=== PATIENT | male | born 1990 | race Caucasian/White ===

== ENCOUNTER 2017-02-23 12:18 | Emergency (ER) | payer BC ==
[2017-02-23] MEDS ORDERED: Lidocaine 1% 20 ML MDV INJECT ONE (12:40)
--- NOTE | 2017-02-23 12:44 | EDM.PDOC ---
ED HPI GENERAL MEDICAL PROBLEM - General Chief Complaint: Laceration Stated Complaint: STITCHES NEEDED ON LIPS Time Seen by Provider: 02/23/17 12:30 Source of Information: Reports: Patient History Limitations: Reports: No Limitations - History of Present Illness INITIAL COMMENTS - FREE TEXT/NARRATIVE: HISTORY AND PHYSICAL: [Laceration to mid-lower lip] History of Present Illness: [26-year-old male presents to the emergency room today with complaints of a laceration to his lower lip. States he was working with a tire iron and it slipped and hit him in the face. Denies any loss of consciousness. Denies any other injury besides the laceration. No current bleeding noted. Tetanus is current May 2016.] Review of Systems: As per history of present illness and below otherwise all systems reviewed and negative. Past medical history: As per history of present illness and as reviewed below otherwise noncontributory. Surgical history: As per history of present illness and as reviewed below otherwise noncontributory. Social history: No reported history of drug or alcohol abuse. Family history: As per history of present illness and as reviewed below otherwise noncontributory. Physical exam: Gen.: On toxic appearing male. Able to speak in full sentences, no shortness of breath. His questions appropriately area alert and oriented 3 HEENT: Normocehpalic, pupils reactive, negative for conjunctival pallor or scleral icterus, mucous membranes moist, throat clear, neck supple, nontender, trachea midline. Gums, oral mucosa, teeth intact. Lungs: Clear to auscultation, breath sounds equal bilaterally, chest non tender. Heart: S1S2, regular, negative for clicks, rubs, or JVD. Abdomen: Soft, nondistended, nontender. Negative for masses or hepatossplenmegaly. Negative for costovertebral tenderness. Extremities: Atraumatic, negative for cords or calf pain. Neurovascular unremarkable. Skin: Approximately 1.5 cm laceration noted to the lower lip, which is midline starting in the oral mucosa coming out that not crossing border. Neuro: Awake, alert, oriented. Cranial nerves II through XII unremarkable. Cerebellum unremarkable. Motor and sensory unremarkable throughout. Exam nonfocal. Diagnostics: [None] Therapeutics: [Lidocaine] Impression: [Lip laceration] Plan: [Discharged to home Sutures are dissolvable Follow-up in 2 days with your primary care provider or return ER] Definitive disposition and diagnosis as appropriate pending reevaluation and review of above. Lower Lip Pain Score (Numeric/FACES): 7 - Related Data Allergies Allergy/AdvReac Type Severity Reaction Status Date / Time No Known Allergies Allergy Verified 02/23/17 12:45 Home Meds: Home Meds Cephalexin [Keflex] 500 mg PO TID #21 capsule 02/23/17 [Rx] Levothyroxine Sodium [Synthroid] 175 mcg 02/23/17 [History] ED ROS GENERAL - Review of Systems Review Of Systems: ROS reveals no pertinent complaints other than HPI. ED EXAM, SKIN/RASH Exam: See Below (Dictation) Course - Vital Signs Last Recorded V/S: Last Vital Signs Temp 36.5 C 02/23/17 12:30 Pulse 61 02/23/17 12:30 Resp 18 02/23/17 12:30 BP 162/74 H 02/23/17 12:30 Pulse Ox 97 02/23/17 12:30 - Orders/Labs/Meds Meds: Medications Discontinued Medications Generic Name Dose Route Start Last Admin Trade Name Génesis PRN Reason Stop Dose Admin Lidocaine HCl 20 ml 02/23/17 12:40 02/23/17 13:00 Xylocaine 1% INJECT 02/23/17 12:41 20 ml ONETIME ONE Administration Departure - Departure Time of Disposition: 13:23 Disposition: Home, Self-Care 01 Condition: Good Clinical Impression: Lip laceration - Discharge Information Prescriptions: Cephalexin [Keflex] 500 mg PO TID #21 capsule Forms: ED Department Discharge Additional Instructions: The following information is given to patients seen in the emergency department who are being discharged to home. This information is to outline your options for follow-up care. We provide all patients seen in our emergency department with a follow-up referral. The need for follow-up, as well as the timing and circumstances, are variable depending upon the specifics of your emergency department visit. If you don't have a primary care physician on staff, we will provide you with a referral. We always advise you to contact your personal physician following an emergency department visit to inform them of the circumstance of the visit and for follow-up with them and/or the need for any referrals to a consulting specialist. The emergency department will also refer you to a specialist when appropriate. This referral assures that you have the opportunity for followup care with a specialist. All of these measure are taken in an effort to provide you with optimal care, which includes your followup. Under all circumstances we always encourage you to contact your private physician who remains a resource for coordinating your care. When calling for followup care, please make the office aware that this follow-up is from your recent emergency room visit. If for any reason you are refused follow-up, please contact the [facility] emergency department at and asked to speak to the emergency department charge nurse. Please return in 2 days for reevaluation of your lip Any signs of infection please return immediately Prescription for cephalexin 500 mg -one tablet 3 times a day 7 days
[2017-02-23 13:46] VITALS: BP 144/84
== END 2017-02-23 13:34 | disposition home or self-care (01) ==
LOC: MW.ED 12:18
DX: S01.511A Laceration without foreign body of lip, initial encounter (principal); W22.8XXA Striking against or struck by other objects, initial encounter
CPT/HCPCS: 12011; 99282; 99283

== ENCOUNTER 2019-01-14 08:09 | Emergency (ER) | payer BC ==
[2019-01-14] MEDS ORDERED: Ketorolac 30 MG/ML SDV IM ONE (08:25)
[2019-01-14] MEDS ORDERED: predniSONE 20 MG Tab PO ONE (08:25)
[2019-01-14 08:28] VITALS: BP 141/70
--- NOTE | 2019-01-14 08:34 | EDM.PDOC ---
ED HPI GENERAL MEDICAL PROBLEM - General Chief Complaint: Back Pain or Injury Stated Complaint: back pain Time Seen by Provider: 01/14/19 08:34 - History of Present Illness INITIAL COMMENTS - FREE TEXT/NARRATIVE: 28 y/o male here for low back pain. States that he has history of low back pain and sciatica for years now. States that he has been having lower back pain and right sciatica for the past 2 weeks. Rates back pain 8/10 at worse. Initially improved but then came back. No recent back trauma or procedures. No saddle anesthesia. No urinary or bowel incontinence. Able to ambulate but has pain with weight bearing on right. Has been taking ibuprofen and tylenol without improvement. - Related Data Allergies Allergy/AdvReac Type Severity Reaction Status Date / Time No Known Allergies Allergy Verified 02/23/17 12:45 Home Meds: Home Meds Levothyroxine Sodium [Synthroid] 200 mcg PO DAILY 02/23/17 [History] Diclofenac Sodium [Voltaren] 75 mg PO BIDMEALS PRN #30 tab.cr 01/14/19 [Rx] Orphenadrine [Norflex] 100 mg PO BID PRN #30 tab 01/14/19 [Rx] predniSONE 40 mg PO WITHBREAKFAST 5 Days tab 01/14/19 [Rx] predniSONE [Prednisone] 40 mg PO DAILY #10 tablet 01/14/19 [Rx] Past Medical History HEENT History: Reports: None Cardiovascular History: Reports: None Genitourinary History: Reports: None Neurological History: Reports: None Psychiatric History: Reports: None Endocrine/Metabolic History: Reports: Hypothyroidism, Other (See Below) Other Endocrine/Metabolic History: thyroid CA Hematologic History: Reports: None Immunologic History: Reports: None Dermatologic History: Reports: None - Infectious Disease History Infectious Disease History: Reports: None - Past Surgical History GI Surgical History: Reports: Small Bowel Other GI Surgeries/Procedures: piece removed as a child Endocrine Surgical History: Reports: Thyroidectomy Musculoskeletal Surgical History: Reports: Other (See Below) Other Musculoskeletal Surgeries/Procedures:: L index finger surgery Social & Family History - Family History Family Medical History: Noncontributory - Tobacco Use Smoking Status *Q: Current Every Day Smoker Years of Tobacco use: 2 Packs/Tins Daily: 1 - Caffeine Use Caffeine Use: Reports: None - Recreational Drug Use Recreational Drug Use: No ED ROS GENERAL - Review of Systems Review Of Systems: ROS reveals no pertinent complaints other than HPI. ED EXAM,LOWER BACK PAIN/INJURY - Physical Exam Exam: See Below General Appearance: Alert, WD/WN, No Apparent Distress Respiratory/Chest: No Respiratory Distress, Lungs Clear Cardiovascular: Regular Rate, Rhythm Back Exam: Other. No: CVA Tenderness (L), CVA Tenderness (R) (low back pain with paraspinal tenderness. able to stand up wand ambulate.) Neurological: Alert, Normal Mood/Affect Course - Vital Signs Text/Narrative:: lumbar xray. Toradol 30 mg IM once. Prednisone 40 mg PO once. Lumbar xray, negative for fractures. Last Recorded V/S: Last Vital Signs Temp 35.9 C 01/14/19 08:20 Pulse 67 01/14/19 08:20 Resp 18 01/14/19 08:20 BP 141/70 H 01/14/19 08:20 Pulse Ox 98 01/14/19 08:20 - Orders/Labs/Meds Orders: Active Orders 24 hr Category Date Time Status Lumbar Spine 2 or 3V [CR] Stat Exams 01/14/19 08:25 Taken Meds: Medications Discontinued Medications Generic Name Dose Route Start Last Admin Trade Name Freq PRN Reason Stop Dose Admin Ketorolac Tromethamine 30 mg 01/14/19 08:25 01/14/19 08:43 Toradol IM 01/14/19 08:26 30 mg ONETIME ONE Administration Prednisone 40 mg 01/14/19 08:25 01/14/19 08:42 Prednisone PO 01/14/19 08:26 40 mg ONETIME ONE Administration Departure - Departure Time of Disposition: 09:27 Disposition: Home, Self-Care 01 Clinical Impression: Sciatic leg pain - Discharge Information *PRESCRIPTION DRUG MONITORING PROGRAM REVIEWED*: Not Applicable *COPY OF PRESCRIPTION DRUG MONITORING REPORT IN PATIENT BETZY: Not Applicable Prescriptions: Diclofenac Sodium [Voltaren] 75 mg PO BIDMEALS PRN #30 tab.cr PRN Reason: Pain Orphenadrine [Norflex] 100 mg PO BID PRN #30 tab PRN Reason: Muscle Spasm predniSONE 40 mg PO WITHBREAKFAST 5 Days tab predniSONE [Prednisone] 40 mg PO DAILY #10 tablet Instructions: Chronic Back Pain, [id number], Sciatica, [id number] Referrals: PCP,None [Primary Care Provider] - Forms: ED Department Discharge Additional Instructions: The following information is given to patients seen in the emergency department who are being discharged to home. This information is to outline your options for follow-up care. We provide all patients seen in our emergency department with a follow-up referral. The need for follow-up, as well as the timing and circumstances, are variable depending upon the specifics of your emergency department visit. If you don't have a primary care physician on staff, we will provide you with a referral. We always advise you to contact your personal physician following an emergency department visit to inform them of the circumstance of the visit and for follow-up with them and/or the need for any referrals to a consulting specialist. The emergency department will also refer you to a specialist when appropriate. This referral assures that you have the opportunity for follow-up care with a specialist. All of these measure are taken in an effort to provide you with optimal care, which includes your follow-up. Under all circumstances we always encourage you to contact your private physician who remains a resource for coordinating your care. When calling for follow-up care, please make the office aware that this follow-up is from your recent emergency room visit. If for any reason you are refused follow-up, please contact the [facility] Emergency Department at and asked to speak to the emergency department charge nurse. - My Orders Last 24 Hours: My Active Orders 01/14/19 08:25 Lumbar Spine 2 or 3V [CR] Stat - Assessment/Plan Last 24 Hours: My Active Orders 01/14/19 08:25 Lumbar Spine 2 or 3V [CR] Stat
--- NOTE | 2019-01-14 09:44 | CR ---
INDICATION: Back pain TECHNIQUE: Lumbar spine 2 view. COMPARISON: None FINDINGS: Bones: Alignment is normal. No fractures or significant bone lesions. Joints: Disc spaces and facets are unremarkable. Soft tissues: Unremarkable. IMPRESSION: Unremarkable lumbar spine. Dictated by Tania Layne MD @ Jan 14 2019 9:43AM Signed by Dr. Tania Layne @ Jan 14 2019 9:43AM
== END 2019-01-14 09:45 | disposition home or self-care (01) ==
LOC: MW.ED 08:09
DX: M54.41 Lumbago with sciatica, right side (principal); E03.9 Hypothyroidism, unspecified; Z79.899 Other long term (current) drug therapy; F17.210 Nicotine dependence, cigarettes, uncomplicated
CPT/HCPCS: 72100; 96372; 99283; A9270; J1885

== ENCOUNTER 2019-02-02 16:01 | Emergency (ER) | payer BC ==
[2019-02-02 16:34] VITALS: BP 132/54; PULSE 87
[2019-02-02] MEDS ORDERED: methylPREDNISolone Sodium Succinate 125 MG/2 ML SDV IM ONE (16:48)
[2019-02-02] MEDS ORDERED: methylPREDNISolone Sodium Succinate 125 MG/2 ML SDV IVPUSH ONE (16:48)
[2019-02-02] MEDS ORDERED: Ketorolac 60 MG/2 ML SDV IM ONE (16:48)
[2019-02-02] MEDS ORDERED: methylPREDNISolone Sodium Succinate 125 MG/2 ML SDV ONE (16:51)
--- NOTE | 2019-02-02 17:41 | EDM.PDOC ---
ED HPI GENERAL MEDICAL PROBLEM - General Chief Complaint: Back Pain or Injury Stated Complaint: back pain Time Seen by Provider: 02/02/19 16:24 Source of Information: Reports: Patient History Limitations: Reports: No Limitations - History of Present Illness INITIAL COMMENTS - FREE TEXT/NARRATIVE: HISTORY AND PHYSICAL: History of present illness: Patient is a 28-year-old male presents to the ED today with concern of an exacerbation of low back pain with right-sided sciatica. Patient states the pain is in his low back and when he bends over she rates down the outside of his right leg. Patient states he has a history of low back pain and was seen in the ED 2 weeks ago for an exacerbation in which he had a lumbar XR, given prednisone, diclofenac, and flexeril which he states he no longer has any of this left. Patient states his exacerbation today is worse than it has ever been before. Patient states he has an appointment at home the first week of February and has an MRI already scheduled for that time. Patient denies any new injury or trauma. Patient denies any loss or retention of bowel or bladder function. Patient myself anesthesia. Patient denies fever, chills, chest pain, shortness of breath, or cough. Denies headache, neck stiff ness, change in vision, syncope, or near syncope. Denies nausea, vomiting, abdominal pain, diarrhea, constipation, or dysuria. Has not noted any blood in urine or stool. Patient has been eating and drinking appropriately. Review of systems: As per history of present illness and below otherwise all systems reviewed and negative. Past medical history: As per history of present illness and as reviewed below otherwise noncontributory. Surgical history: As per history of present illness and as reviewed below otherwise noncontributory. Social history: See social history for further information Family history: As per history of present illness and as reviewed below otherwise noncontributory. Physical exam: General: Patient is alert, oriented, and in no acute distress. Patient sitting comfortably on exam table. HEENT: Atraumatic, normocephalic, pupils equal and reactive bilaterally, negative for conjunctival pallor or scleral icterus, mucous membranes moist, TMs normal bilaterally, throat clear, neck supple, nontender, trachea midline. No drooling or trismus noted. No meningeal signs. No hot potato voice noted. Lungs: Clear to auscultation, breath sounds equal bilaterally, chest nontender. Heart: S1S2, regular rate and rhythm without overt murmur Abdomen: Soft, nondistended, nontender. Negative for masses or hepatosplenomegaly. Negative for costovertebral tenderness. Pelvis: Stable nontender. Genitourinary: Deferred. Rectal: Deferred. Skin: Intact, warm, dry. No lesions or rashes noted. Extremities: Atraumatic, negative for cords or calf pain. Neurovascular unremarkable. Patient has full range of motion of cervical and thoracic spine but limited range of motion of the lumbar spine due to pain. Negative pain to palpation of complete spinous processes of complete spine. Patient does have moderate-severe pain with palpation on the right side of the paraspinous muscle of the lumbar spine. No obvious deformity of the spine. No step-offs, deformities, or crepitus on palpation. Neuro: Awake, alert, oriented. Cranial nerves II through XII unremarkable. Cerebellum unremarkable. Motor and sensory unremarkable throughout. Exam nonfocal. Notes: Discussed the importance for follow-up with a primary care provider. Voices understanding and is agreeable to plan of care. Denies any further questions or concerns at this time. Diagnostics: Lumbar CT Therapeutics: Toradol, Solumedrol, Norflex Prescription: Diclofenac, Flexeril, Medrol Dosepak Impression: Spondylolysis Acute on chronic low back pain Plan: 1. Take medication as prescribed. You can also use Tylenol as directed for pain and discomfort. You can apply heat and/or ice 15 minutes on 15 minutes off for symptomatic relief. 2. Follow-up with her primary care provider and for your MRI as discussed and as scheduled. 3. Return to the ED as needed and as discussed. Definitive disposition and diagnosis as appropriate pending reevaluation and review of above. R lower back and upper buttock/radiating down leg Pain Score (Numeric/FACES): 8 - Related Data Allergies Allergy/AdvReac Type Severity Reaction Status Date / Time No Known Allergies Allergy Verified 02/23/17 12:45 Home Meds: Home Meds Levothyroxine Sodium [Synthroid] 200 mcg PO DAILY 02/23/17 [History] Cyclobenzaprine [Flexeril] 10 mg PO TID PRN #15 tab 02/02/19 [Rx] Diclofenac Sodium [Voltaren] 75 mg PO BIDMEALS PRN #15 tab.cr 02/02/19 [Rx] methylPREDNISolone [Medrol] 4 mg PO ASDIRECTED #1 dosepk 02/02/19 [Rx] Past Medical History HEENT History: Reports: None Cardiovascular History: Reports: None Genitourinary History: Reports: None Neurological History: Reports: None Psychiatric History: Reports: None Endocrine/Metabolic History: Reports: Hypothyroidism, Other (See Below) Other Endocrine/Metabolic History: thyroid CA Hematologic History: Reports: None Immunologic History: Reports: None Oncologic (Cancer) History: Reports: Thyroid Dermatologic History: Reports: None - Infectious Disease History Infectious Disease History: Reports: None - Past Surgical History GI Surgical History: Reports: Small Bowel Other GI Surgeries/Procedures: piece removed as a child Endocrine Surgical History: Reports: Thyroidectomy Musculoskeletal Surgical History: Reports: Other (See Below) Other Musculoskeletal Surgeries/Procedures:: L index finger surgery Social & Family History - Family History Family Medical History: Noncontributory - Tobacco Use Smoking Status *Q: Current Every Day Smoker Years of Tobacco use: 2 Packs/Tins Daily: 0.2 - Caffeine Use Caffeine Use: Reports: None - Recreational Drug Use Recreational Drug Use: No ED ROS GENERAL - Review of Systems Review Of Systems: ROS reveals no pertinent complaints other than HPI. ED EXAM, GENERAL - Physical Exam Exam: See Below (see dictation) Course - Vital Signs Last Recorded V/S: Last Vital Signs Temp 36.3 C 02/02/19 16:29 Pulse 87 02/02/19 16:29 Resp 20 02/02/19 16:29 BP 132/54 L 02/02/19 16:29 Pulse Ox 97 02/02/19 16:29 - Orders/Labs/Meds Meds: Medications Discontinued Medications Generic Name Dose Route Start Last Admin Trade Name Freq PRN Reason Stop Dose Admin Ketorolac Tromethamine 60 mg 02/02/19 16:48 02/02/19 16:55 Toradol IM 02/02/19 16:49 60 mg ONETIME ONE Administration Methylprednisolone Sodium Succinate 125 mg 02/02/19 16:48 Solu-Medrol IVPUSH 02/02/19 16:49 ONETIME ONE Methylprednisolone Sodium Succinate 125 mg 02/02/19 16:48 02/02/19 16:54 Solu-Medrol IM 02/02/19 16:49 125 mg ONETIME ONE Administration Methylprednisolone Sodium Succinate Confirm 02/02/19 16:51 02/02/19 17:50 Solu-Medrol Administered 02/02/19 16:52 Not Given Dose 125 mg .ROUTE .STK-MED ONE Orphenadrine Citrate 60 mg 02/02/19 16:48 02/02/19 16:54 Norflex IM 02/02/19 16:49 60 mg NOW STA Administration Departure - Departure Time of Disposition: 17:56 Disposition: Home, Self-Care 01 Clinical Impression: Acute exacerbation of chronic low back pain Spondylolisthesis Qualifiers: Spinal region: lumbar Qualified Code(s): M43.16 - Spondylolisthesis, lumbar region - Discharge Information Prescriptions: Cyclobenzaprine [Flexeril] 10 mg PO TID PRN #15 tab PRN Reason: Spasms Diclofenac Sodium [Voltaren] 75 mg PO BIDMEALS PRN #15 tab.cr PRN Reason: Pain methylPREDNISolone [Medrol] 4 mg PO ASDIRECTED #1 dosepk Referrals: PCP,None [Primary Care Provider] - Forms: ED Department Discharge Additional Instructions: The following information is given to patients seen in the emergency department who are being discharged to home. This information is to outline your options for follow-up care. We provide all patients seen in our emergency department with a follow-up referral. The need for follow-up, as well as the timing and circumstances, are variable depending upon the specifics of your emergency department visit. If you don't have a primary care physician on staff, we will provide you with a referral. We always advise you to contact your personal physician following an emergency department visit to inform them of the circumstance of the visit and for follow-up with them and/or the need for any referrals to a consulting specialist. The emergency department will also refer you to a specialist when appropriate. This referral assures that you have the opportunity for follow-up care with a specialist. All of these measure are taken in an effort to provide you with optimal care, which includes your follow-up. Under all circumstances we always encourage you to contact your private physician who remains a resource for coordinating your care. When calling for follow-up care, please make the office aware that this follow-up is from your recent emergency room visit. If for any reason you are refused follow-up, please contact the [facility] Emergency Department at and asked to speak to the emergency department charge nurse. [facility] [address] [place] [address] [facility] [address] [place] [address] 1. Take medication as prescribed. You can also use Tylenol as directed for pain and discomfort. You can apply heat and/or ice 15 minutes on 15 minutes off for symptomatic relief. 2. Follow-up with her primary care provider and for your MRI as discussed and as scheduled. 3. Return to the ED as needed and as discussed.
--- NOTE | 2019-02-02 17:47 | CT ---
INDICATION: Low back pain radiating to the right side. TECHNIQUE: Noncontrast axial CT of the lumbar spine with coronal/sagittal reformats are provided. No comparisons. FINDINGS: Mild grade 1 anterolisthesis of L5 on S1 due to chronic appearing bilateral L5 spondylolysis. Remainder of the lumbar spine demonstrates normal overall stature and alignment. L5-S1: Mild anterolisthesis with mild unroofing of the intervertebral disc space results in mild to moderate bilateral foraminal narrowing with contact of the exiting L5 nerve roots. No central canal narrowing. Remainder of the lumbar spine is unremarkable, specifically no evidence suspicious central canal or foraminal narrowing. Moderate degenerative changes of the left sacroiliac joint with prominent syndesmophyte. IMPRESSION: Mild grade 1 anterolisthesis of L5 on S1 due to chronic bilateral L5 spondylolysis with resultant mild to moderate bilateral foraminal narrowing and contact of the exiting L5 nerve roots. Dictated by Ananda Taylor MD @ 02/02/2019 5:45:42 PM Please note that all CT scans at this facility use dose modulation, iterative reconstruction, and/or weight-based dosing when appropriate to reduce radiation dose to as low as reasonably achievable. Dictated by: Aannda Taylor MD @ 02/02/2019 17:45:50 (Electronically Signed)
== END 2019-02-02 18:10 | disposition home or self-care (01) ==
LOC: MW.ED 16:01
DX: M43.16 Spondylolisthesis, lumbar region (principal); E03.9 Hypothyroidism, unspecified; F17.210 Nicotine dependence, cigarettes, uncomplicated; Z79.899 Other long term (current) drug therapy
CPT/HCPCS: 72131; 96372; 99283; J1885; J2360; J2930; 99284

== ENCOUNTER 2021-02-09 08:48 | Emergency (ER) | payer BC ==
[2021-02-09] MEDS ORDERED: Sodium Chloride 0.9% 10 ML Syringe FLUSH PRN (08:59)
[2021-02-09] MEDS ORDERED: Sodium Chloride 0.9% 2.5 ML Syringe FLUSH PRN (08:59)
[2021-02-09] MEDS ORDERED: Albuterol 8 GM Inhaler INH STA (09:02)
[2021-02-09] MEDS ORDERED: Naproxen 500 MG Tab PO ONE (09:02)
--- NOTE | 2021-02-09 09:04 | EDM.PDOC ---
ED HPI GENERAL MEDICAL PROBLEM - General Chief Complaint: Respiratory Problem Stated Complaint: CHEST PAIN Time Seen by Provider: 02/09/21 08:54 - History of Present Illness INITIAL COMMENTS - FREE TEXT/NARRATIVE: History of present illness: [] This patient is 4 days of shortness of breath with cough and pleurisy. His pain is in the chest like a heaviness when he tries to breathe. Its not brought on by exertion but brought on by heavy breath and coughing. He has no fever. His is so he wants to be tested make sure he is not contagious. The patient smoked until 6 months ago. He smoked about 6 years. The patient has a negative history of hypertension negative cholesterol negative diabetes. He has a negative family history of heart disease or stroke. Review of systems: As per history of present illness and below otherwise all systems reviewed and negative. Past medical history: As per history of present illness and as reviewed below otherwise noncontributory. Surgical history: As per history of present illness and as reviewed below otherwise noncontributory. Social history: No reported history of drug or alcohol abuse. Family history: As per history of present illness and as reviewed below otherwise noncontributory. Physical exam: Constitutional - well developed, well-nourished and in no acute distress HEENT - normocephalic, no evidence of trauma - external nose and mouth normal - no mass in neck and no JVD - mucosae moist EYES - full EOM, PERRL, no icterus - no evidence of inflammation, injection, or drainage Respiratory - no respiratory distress, equal bilateral expansion, lungs clear to auscultation and slightly diminished throughout with slight prolongation of expiratory phase of respiration. Cardiovascular - Regular Rhythm with S1 and S2 appreciated and no murmur, gallop or rub. GI - abdomen soft without distension or organomegaly - normal bowel sounds - no guard or rebound Musculoskeletal no gross deformity of long bones or joints - no tenderness, swelling or edema Neurologic - Alert and oriented times four - CN II-XII grossly intact - motor sensory and coordination symmetrically normal Psychiatric - appropriate mood and affect with normal thought content Hematologic - No petechiae or purpura - mucosa appropriate color and sclera not pale - normal nail bed color and refill Integument - no rash or evidence of trauma - normal turgor Diagnostics: [] Therapeutics: [] Impression: [] Plan: [] Definitive disposition and diagnosis as appropriate pending reevaluation and review of above. - Related Data Allergies Allergy/AdvReac Type Severity Reaction Status Date / Time No Known Allergies Allergy Verified 02/09/21 08:55 Home Meds: Home Meds Levothyroxine Sodium [Synthroid] 200 mcg PO DAILY 02/23/17 [History] Adalimumab [Humira Pen] 40 mg SQ ASDIRECTED 02/09/21 [History] Past Medical History HEENT History: Reports: None Cardiovascular History: Reports: None Genitourinary History: Reports: None Neurological History: Reports: None Psychiatric History: Reports: None Endocrine/Metabolic History: Reports: Hypothyroidism, Other (See Below) Other Endocrine/Metabolic History: thyroid CA Hematologic History: Reports: None Immunologic History: Reports: None Oncologic (Cancer) History: Reports: Thyroid Dermatologic History: Reports: None - Infectious Disease History Infectious Disease History: Reports: None - Past Surgical History GI Surgical History: Reports: Small Bowel Other GI Surgeries/Procedures: piece removed as a child Endocrine Surgical History: Reports: Thyroidectomy Musculoskeletal Surgical History: Reports: Other (See Below) Other Musculoskeletal Surgeries/Procedures:: L index finger surgery Social & Family History - Family History Family Medical History: No Pertinent Family History - Caffeine Use Caffeine Use: Reports: None ED ROS GENERAL - Review of Systems Review Of Systems: Comprehensive ROS is negative, except as noted in HPI. ED EXAM, GENERAL - Physical Exam Exam: See Below Free Text/Narrative:: My physical exam is in the HPI #1 Interpretation EKG Interpretation Comments: EKG at 8:50 AM shows sinus rhythm heart rate 86 AR 163 [address] and T the P wave is enlarged. Impression normal except for possible atrial enlargement. Course - Vital Signs Text/Narrative:: 1029 patient is somewhat improved. He is not high risk for complications and is not hypoxic. Sent home with Covid instructions. Last Recorded V/S: Last Vital Signs Temp 36.9 C 02/09/21 08:59 Pulse 87 02/09/21 08:59 Resp 20 02/09/21 08:59 BP 127/79 02/09/21 08:59 Pulse Ox 96 02/09/21 08:59 - Orders/Labs/Meds Orders: Active Orders 24 hr Category Date Time Status EKG Documentation Completion [RC] AM Care 02/09/21 08:59 Active RT Post Treatment Assessment [RC] Click to Edit Care 02/09/21 09:02 Active RT Pre-Treatment Assessment [RC] Click to Edit Care 02/09/21 09:02 Active Labs: Laboratory Tests 02/09/21 02/09/21 02/09/21 Range/Units 09:20 09:23 09:23 WBC 3.47 L (4.0-11.0) K/uL RBC 4.90 (4.50-5.90) M/uL Hgb 14.2 (13.0-17.0) g/dL Hct 40.3 (38.0-50.0) % MCV 82.2 (80.0-98.0) fL MCH 29.0 (27.0-32.0) pg MCHC 35.2 (31.0-37.0) g/dL RDW Std Deviation 38.2 (28.0-62.0) fl RDW Coeff of Ruba 13 (11.0-15.0) % Plt Count 176 (150-400) K/uL MPV 8.70 (7.40-12.00) fL Add Manual Diff YES Neutrophils % (Manual) 68 (48.0-80.0) % Lymphocytes % (Manual) 15 L (16.0-40.0) % Monocytes % (Manual) 15 (0.0-15.0) % Eosinophils % (Manual) 2 (0.0-7.0) % Nucleated RBC % 0.0 /100WBC Absolute Seg Neuts 2.4 (1.4-5.7) Lymphocytes # (Manual) 0.5 L (0.6-2.4) Monocytes # (Manual) 0.5 (0.0-0.8) Eosinophils # (Manual) 0.1 (0.0-0.7) Nucleated RBCs # 0 K/uL Sodium 138 (136-148) mmol/L Potassium 4.0 (3.5-5.1) mmol/L Chloride 101 (98-107) mmol/L Carbon Dioxide 27.0 (21.0-32.0) mmol/L BUN 14 (7.0-18.0) mg/dL Creatinine 1.2 (0.8-1.3) mg/dL Est Cr Clr Drug Dosing 102.65 mL/min Estimated GFR (MDRD) > 60.0 ml/min Glucose 87 (74-106) mg/dL Calcium 9.0 (8.5-10.1) mg/dL Total Bilirubin 0.7 (0.2-1.0) mg/dL AST 37 (15-37) IU/L ALT 91 H (14-63) IU/L Alkaline Phosphatase 58 (46-116) U/L Troponin I < 0.050 (0.000-0.056) ng/mL Total Protein 7.5 (6.4-8.2) g/dL Albumin 4.6 (3.4-5.0) g/dL Globulin 2.9 (2.6-4.0) g/dL Albumin/Globulin Ratio 1.6 (0.9-1.6) Influenza Type A RNA NEGATIVE (NEGATIVE) Influenza Type B RNA NEGATIVE (NEGATIVE) SARS-CoV-2 RNA (MARI) POSITIVE H (NEGATIVE) Meds: Medications Discontinued Medications Generic Name Dose Route Start Last Admin Trade Name Freq PRN Reason Stop Dose Admin Albuterol 8 gm 02/09/21 09:02 02/09/21 09:39 Albuterol 8 Gm Inhaler INH 02/09/21 09:03 1 dose ONETIME STA Administration Naproxen 500 mg 02/09/21 09:02 02/09/21 09:39 Naproxen 500 Mg Tab PO 02/09/21 09:03 500 mg ONETIME ONE Administration Sodium Chloride 10 ml 02/09/21 08:59 Sodium Chloride 0.9% 10 Ml Syringe FLUSH ASDIRECTED PRN Keep Vein Open Sodium Chloride 2.5 ml 02/09/21 08:59 Sodium Chloride 0.9% 2.5 Ml Syringe FLUSH ASDIRECTED PRN Keep Vein Open Departure - Departure Time of Disposition: 10:35 Disposition: Home, Self-Care 01 Condition: Good Clinical Impression: Pleurisy, COVID-19, Bronchitis - Discharge Information Instructions: COVID-19 Frequently Asked Questions, What You Should Know About COVID-19 to Protect Yourself and Others - CDC, COVID-19 Vaccine Information, Metered Dose Inhaler (No Spacer Used), COVID-19: How to Protect Yourself and Others - CDC, Pleurisy, [id number] Referrals: PCP,None [Primary Care Provider] - Forms: ED Department Discharge Additional Instructions: [facility] - Primary Care [address] [place] [id number] [facility] [address] [place] [id number] The following information is given to patients seen in the emergency department who are being discharged to home. This information is to outline your options for follow-up care. We provide all patients seen in our emergency department with a follow-up referral. The need for follow-up, as well as the timing and circumstances, are variable de pending upon the specifics of your emergency department visit. If you don't have a primary care physician on staff, we will provide you with a referral. We always advise you to contact your personal physician following an emergency department visit to inform them of the circumstance of the visit and for follow-up with them and/or the need for any referrals to a consulting specialist. The emergency department will also refer you to a specialist when appropriate. This referral assures that you have the opportunity for follow-up care with a specialist. All of these measure are taken in an effort to provide you with optimal care, which includes your follow-up. Under all circumstances we always encourage you to contact your private physician who remains a resource for coordinating your care. When calling for follow-up care, please make the office aware that this follow-up is from your recent emergency room visit. If for any reason you are refused follow-up, please contact the [facility] Emergency Department at and asked to speak to the emergency department charge nurse. Sepsis Event Note (ED) - Focused Exam Vital Signs: Vital Signs Temp Pulse Resp BP Pulse Ox 02/09/21 08:59 36.9 C 87 20 127/79 96 - My Orders Last 24 Hours: My Active Orders 02/09/21 08:59 EKG Documentation Completion [RC] AM 02/09/21 09:02 RT Post Treatment Assessment [RC] Click to Edit RT Pre-Treatment Assessment [RC] Click to Edit - Assessment/Plan Last 24 Hours: My Active Orders 02/09/21 08:59 EKG Documentation Completion [RC] AM 02/09/21 09:02 RT Post Treatment Assessment [RC] Click to Edit RT Pre-Treatment Assessment [RC] Click to Edit
[2021-02-09 09:52] LABS: BLOOD UREA NITROGEN,BUN 14 mg/dL (7.0-18.0); CHLORIDE,CL 101 mmol/L (98-107); GLUCOSE RANDOM 87 mg/dL (74-106); SODIUM,NA 138 mmol/L (136-148)
--- NOTE | 2021-02-09 10:02 | CR ---
INDICATION: Pleurisy and shortness of breath. TECHNIQUE: Two view chest. FINDINGS: The lungs are clear. The heart, mediastinum and pulmonary vessels are of normal size. There is no evidence of pleural disease. IMPRESSION: Negative chest. Dictated by Girish Lucas MD @ 02/09/2021 10:01:[address] Girish Lucas @ Feb 09 2021 10:01AM
[2021-02-09 10:18] LABS: CORONAVIRUS COVID-19 NAA POSITIVE (NEGATIVE); INFLUENZA A NAA NEGATIVE (NEGATIVE); INFLUENZA B NAA NEGATIVE (NEGATIVE)
[2021-02-09 11:04] VITALS: BP 107/69; PULSE 90
== END 2021-02-09 11:04 | disposition home or self-care (01) ==
LOC: MW.ED 08:48
DX: U07.1 COVID-19 (principal); R09.1 Pleurisy; J40 Bronchitis, not specified as acute or chronic; E03.9 Hypothyroidism, unspecified; Z79.899 Other long term (current) drug therapy
CPT/HCPCS: 0240U; 36415; 71046; 80053; 84484; 85025; 93005; 99285; A9270